=== PATIENT | female | born 1945 | race Caucasian/White ===

== ENCOUNTER 2016-11-08 14:36 | Inpatient (IN) | payer MEDICARE, OTHER ==
[~2016-11-08] VITALS: Ht 172.7 cm; Wt 63.4 kg
--- NOTE | ~2016-11-08 | ECH ---
Transthoracic Echocardiography Report (TTE) Demographics Patient Name JUVE KWONG Date of Study 11/09/2016 Patient Number [id number] Visit Number [id number] Date of 1945 Room Number 408 Accession Number [id number] Gender Female Age 71 year(s) Referring Blanca Sow Greige Goods Examiner Mamie Wetzel Physician RDCS Physician Interpreting Grecia Dunn MD Cloth Designer Physician Supervising Ordering Physician Blanca Sow MD/MLP Nurse Stress Bacon Stringer Conclusions Summary Technically good exam. The estimated left ventricular ejection fraction is 60-65%. Diastolic assessment reveals Grade I diastolic dysfunction. Mild tricuspid regurgitation by color Doppler. There is severe pulmonary hypertension. The pulmonary pressure (RVSP) is 67 mmHg. Procedure Type of Study TTE procedure:Echo Complete SF. Procedure Date Date: 11/09/2016 Start: 11:01 AM Technical Quality: Good visualization Indications:Pulmonary embolus. Appropriate Use Criteria: 9 Height: 68 inches Weight: 135 pounds BSA: 1.73 m Rhythm: NSR HR: 86 bpm BP: 142/81 mmHg M-Mode/2D Measurements LV Diastolic Dimension: 3.85 cm LV Systolic Dimension: 2.38 cm LV Septum Diastolic: 0.91 cm LV PW Diastolic: 0.77 cm AO Root Dimension: 2.79 cm Cardiac Output: 5.3 l/min LA Dimension: 3.63 cm Cardiac Index: 3.06 l/min*m RV Diastolic Dimension: 3.58 cm LA volume index: 18 ml/m LVOT: 2.06 cm LVOT VTI: 18.49 cm RV Base: 3.2 cm LV Stroke volume: 61.59 ml RV Mid: 2.2 cm LV Stroke volume index: 35.6 ml/m TAPSE: 1.9 cm TDI-S': 17 cm/s Doppler Measurements AV Peak Velocity: 1.1 m/s MV Peak E-Wave: 0.73 m/s AV Peak Gradient: 4.84 mmHg MV Peak A-Wave: 0.99 m/s AV Mean Gradient: 2.14 mmHg MV E/A Ratio: 0.73 LVOT Peak Velocity: 0.84 m/s MV P1/2t: 45.7 msec AV Area (Continuity):2.33 cm MV Deceleration Time: 140.9 msec TR Velocity:3.99 m/s MV Area (PHT): 4.82 cm TR Gradient:63.76 mmHg PV Peak Velocity: 0.85 m/s Estimated RAP:3 mmHg PV Peak Gradient: 2.86 mmHg Estimated RVSP: 67 mmHg Estimated PASP: 66.76 mmHg E' Septal Velocity: 0.07 m/s A' Septal Velocity: 0.14 m/s E' Lateral Velocity: 0.11 m/s A' Lateral Velocity: 0.15 m/s RA Area: 14.08 cm Findings Left Ventricle Normal left ventricle size and function. Diastolic assessment reveals Grade I diastolic dysfunction. Right Ventricle Normal right ventricle structure and function. Left Atrium Normal left atrial size. Right Atrium Normal right atrial size. Mitral Valve Normal mitral valve structure and function. Trivial mitral regurgitation by color Doppler. Aortic Valve The aortic valve is mildly sclerotic. Tricuspid Valve Normal tricuspid valve structure and function. Mild tricuspid regurgitation by color Doppler. There is severe pulmonary hypertension. The pulmonary pressure (RVSP) is 67 mmHg. Pulmonic Valve Normal pulmonic valve structure and function. Pericardial Effusion No evidence of pericardial effusion. Miscellaneous Visualized portions of the aortic root and ascending aorta appear normal in size. Pleural Effusion No evidence of pleural effusion. Contractility Score LV regional wall motion:(0-Non visualized 1-Normal 2-Hypokinesis 3-Akinesis 4-Dyskinesis 5-Aneurysm) Signature
[2016-11-14] MEDS ORDERED: PROAIR RESPICL90 MCG IH (10:45)
[2016-11-14] MEDS ORDERED: ZYLOPRIM-DPS100 MG PO (10:46)
[2016-11-14] MEDS ORDERED: ROCALTROL DPS0.5 MCG PO (10:46)
[2016-11-14] MEDS ORDERED: SYMBICORT160 MCG/6 IH (10:46)
[2016-11-14] MEDS ORDERED: ASPIR 8181 MG PO (10:46)
[2016-11-14] MEDS ORDERED: NORVASC DPS10 MG PO (10:46)
[2016-11-14] MEDS ORDERED: LEXAPRO DPS20 MG PO (10:47)
[2016-11-14] MEDS ORDERED: KLONOPIN DPS1 MG PO (10:47)
[2016-11-14] MEDS ORDERED: LOMOTIL 2.5-0.1 EACH PO (10:47)
[2016-11-14] MEDS ORDERED: PHOS-LO667 MG PO (10:47)
[2016-11-14] MEDS ORDERED: DURAGESIC DPS100 MCG TD (10:48)
[2016-11-14] MEDS ORDERED: NEURONTIN DPS100 MG PO (10:48)
[2016-11-14] MEDS ORDERED: HYDROCODON-ACE1 EAC2 PO (10:49)
[2016-11-14] MEDS ORDERED: PREVACID15 MG PO (10:49)
[2016-11-14] MEDS ORDERED: LEVOTHYROXINE75 MCG PO (10:50)
[2016-11-14] MEDS ORDERED: METOPROLOL SUCC50 MG PO (10:52)
[2016-11-14] MEDS ORDERED: LIDOCAINE 5% PATCH TD (10:52)
[2016-11-14] MEDS ORDERED: ANTIVERT-DPS25 MG PO (10:52)
[2016-11-14] MEDS ORDERED: NITROSTAT0.4 MG SL (10:52)
[2016-11-14] MEDS ORDERED: DAILY MULTIPLE1 EAC1 PO (10:52)
[2016-11-14] MEDS ORDERED: SOD BICARB TAB650 MG PO (10:53)
[2016-11-14] MEDS ORDERED: SPIRIVA18 MCG IH (10:54)
[2016-11-14] MEDS ORDERED: ZANAFLEX4 MG PO (10:54)
[2016-11-14] MEDS ORDERED: VITAMIN D250000 UNIT PO (10:54)
[2016-11-14] MEDS ORDERED: IMITREX DPS100 MG PO (10:54)
[2016-11-14] MEDS ORDERED: LASIX DPS40 MG PO (10:58)
--- NOTE | 2016-11-19 21:46 | DS ---
ADMIT: 11/08/2016 RM/LOC: [address] [facility] MR#: [id number] [address] [facility] [id number] [place], [place] [address] JUVE KWONG [address] [place] [address] Discharge Summary SEX: F AGE: 71 : 1945 ADMISSION DATE: 11/08/2016 DISCHARGE DATE: 11/13/2016 DIAGNOSES: 1. Pulmonary embolism right lung. 2. Pulmonary hypertension. 3. Hypoxemia. 4. End-stage renal disease. 5. Left flank pain. 6. Nephrolithiasis. 7. Hypertension. 8. Dyspnea on exertion. 9. Anemia-chronic due to chronic disease and renal failure. PROCEDURE: 1. VQ scan 11/08/2016. 2. Venous Doppler bilateral lower extremity 11/08/2016. 3. Echocardiogram 11/09/2016. 4. Ultrasound of the kidneys 11/09/2016. CONSULTS: None. REASON FOR HOSPITALIZATION: Shortness of breath and hypoxemia. See dictated H and P. LABORATORY AND X-RAY DATA: VQ scan showed intermediate to high probability of pulmonary embolism with a wedge-shaped perfusion defect in the right lower lobe. Bilateral venous Dopplers, lower extremity negative. Ultrasound of the kidneys with renal cysts on the right. Also, renal cyst on the left and no hydronephrosis. X-ray of the abdomen with bilateral nephrolithiasis. Sodium 147, potassium 4.2, chloride 117, CO2 21, BUN 33 down to 21, creatinine 2.4 down to 2, blood sugar variable-see chart. GFR was 24, troponin less than 0.015. INR on admission was 1.25. On 11/12 she was 2.69, on 11/13, 4.27. PTT variable-see chart. White count 7.4, hemoglobin 9.2, platelet count 328, factor V Leiden is pending. Echocardiogram 11/09/2016 with an ejection of 60- 65% and severe pulmonary hypertension with RVSP of 67. COURSE IN THE HOSPITAL: Jessica was admitted after a visit to the office showed her with sats of 87% down to 76% with ambulation. D-dimer was elevated. VQ scan confirmed pulmonary embolism. Due to her renal failure, she was not able to take any of the oral medications or Lovenox. She was admitted for Coumadin. She also needed oxygen with activity, and this was added. Heparin was continued. Coumadin was started. Echocardiogram was done and showed significant pulmonary hypertension probably related to her pulmonary embolism. On the echo, she was noted to have severe pulmonary hypertension, which was contributing to her poor exercise tolerance. Coumadin was adjusted. She did have extreme pain in the left flank that seemed to be more musculoskeletal and consistent with either that or even her underlying nephrolithiasis. She was hydrated, given pain medications, and the symptoms ADMIT: 11/08/2016 RM/LOC: [address] [facility] MR#: [id number] [address] [place] [address] JUVE KWONG [address] [place] [address] Discharge Summary SEX: F AGE: 71 : 1945 did resolve. She continued to increase her activity via a small amount. She was a little more short of breath than she felt she wanted to be just prior to discharge, but we felt it was probably deconditioning as her sats were fine. Her INR was a little slow to increase. She did jump a little excessive just prior to dismissal. We elected to naturally let things come down normally and follow closely as an outpatient. She had been on 7.5 mg, and we had decreased to 6 mg. I will probably send her on 5 mg once we see what her lab is as an outpatient. We will also arrange for her to get home O2 if she qualifies for daytime use. She is improved. Waiting on factor V Leiden as two family members have this. DISCHARGE INSTRUCTIONS: 1. CBC to see about oxygen during the day. 2. She is to come to the office on Sunday for lab including a pro time. O2 as at home. 3. Aspirin 81 mg daily. 4. Klonopin 1 mg at bedtime. 5. Lexapro 20 mg daily. 6. Neurontin 300 mg at bedtime. 7. Norvasc 10 daily. 8. PhosLo 667 b.i.d. with meals. 9. Prevacid 50 mg daily or Prilosec 20 mg daily. 10.Rocaltrol 0.5 daily. 11.Sodium bicarb 650 three pills b.i.d. 12.Synthroid 0.075 mg daily. 13.Vitamin daily. 14.Toprol-XL 50 mg daily. 15.Vitamin D 50,000 every 48 hours. 16.Zyloprim 100 mg daily. 17.Symbicort 160/4.5 one puff b.i.d. 18.Spiriva daily. 19.Duragesic 12 mcg Q 74 hours. 20.Albuterol 2 puffs every 4 hours p.r.n. 21.Lomotil p.r.n. 22.Lido Patch p.r.n. 23.Lasix 40 mg daily p.r.n. 24.Hydrocodone 7.5/325 one every 4-6 hours p.r.n. 25.Meclizine 25 mg 1/2 to 1 q.6h p.r.n. ADMIT: 11/08/2016 RM/LOC: [address] [facility] MR#: [id number] [address] [address] JUVE KWONG [address] [place] [address] Discharge Summary SEX: F AGE: 71 : 1945 26.Nitroglycerin p.r.n. 27.Tizanidine 2 mg q.6h p.r.n. She is improved but will need to be monitored outpatient. We will likely get an echo in about 3 months to see how her pulmonary hypertension is doing. Prognosis is good. Time spent was 40 minutes. Teetee Rios MD/ dewaynef JOB #: [id number] CC: eTetee Rios MD, Attending Physician Teetee Rios MD, Family Physician MD Rea Salas MD [facility] Pulmonology [address] [address]
[2016-12-02] MEDS ORDERED: PROVENTIL HFA6.7 GM IH (21:16)
[2016-12-02] MEDS ORDERED: ASA CHILDREN'S81 MG PO (21:17)
[2016-12-02] MEDS ORDERED: ROCALTROL DPS0.5 MCG PO (21:17)
[2016-12-02] MEDS ORDERED: NORVASC DPS10 MG PO (21:17)
[2016-12-02] MEDS ORDERED: SYMBICORT160 MCG/6 IH (21:17)
[2016-12-02] MEDS ORDERED: ZYLOPRIM-DPS100 MG PO (21:17)
[2016-12-02] MEDS ORDERED: KLONOPIN DPS1 MG PO (21:18)
[2016-12-02] MEDS ORDERED: PHOS-LO667 MG PO (21:18)
[2016-12-02] MEDS ORDERED: LEXAPRO DPS20 MG PO (21:18)
[2016-12-02] MEDS ORDERED: LASIX DPS40 MG PO (21:19)
[2016-12-02] MEDS ORDERED: DURAGESIC1 EAC1 TD (21:19)
[2016-12-02] MEDS ORDERED: NEURONTIN DPS300 MG PO (21:19)
[2016-12-02] MEDS ORDERED: NORCO 7.5-3251 EACH PO (21:20)
[2016-12-02] MEDS ORDERED: PREVACID15 MG PO (21:20)
[2016-12-02] MEDS ORDERED: SYNTHROID DP0.075 MG PO (21:20)
[2016-12-02] MEDS ORDERED: LIDOPATCH1 EACH TD (21:22)
[2016-12-02] MEDS ORDERED: ANTIVERT-DPS25 MG PO (21:23)
[2016-12-02] MEDS ORDERED: THERA1 EACH PO (21:23)
[2016-12-02] MEDS ORDERED: NITROSTAT0.4 MG SL (21:23)
[2016-12-02] MEDS ORDERED: TOPROL XL50 MG PO (21:23)
[2016-12-02] MEDS ORDERED: SOD BICARB TAB650 MG PO (21:24)
[2016-12-02] MEDS ORDERED: IMITREX DPS100 MG PO (21:24)
[2016-12-02] MEDS ORDERED: TIZANIDINE HCL2 M1 PO (21:25)
[2016-12-02] MEDS ORDERED: SPIRIVA18 MCG IH (21:25)
[2016-12-02] MEDS ORDERED: VITAMIN D50000 UNIT PO (21:25)
[2016-12-02] MEDS ORDERED: COUMADIN1 MG PO (21:26)
[2016-12-02] MEDS ORDERED: MAG-OX400 MG PO (21:26)
== END 2016-11-13 15:23 | disposition home or self-care (01) | DRG 175 ==
LOC: RAD.S 14:36 → 4PCU 16:13
PROVIDERS: ADMIT Internal Medicine
DX: I26.99 Other pulmonary embolism without acute cor pulmonale (principal); N18.6 End stage renal disease; I12.0 Hypertensive chronic kidney disease with stage 5 chronic kidney disease or end stage renal disease; I27.2 Other secondary pulmonary hypertension; D80.3 Selective deficiency of immunoglobulin G [IgG] subclasses; N25.81 Secondary hyperparathyroidism of renal origin; E03.9 Hypothyroidism, unspecified; D63.1 Anemia in chronic kidney disease; N28.1 Cyst of kidney, acquired; I25.10 Atherosclerotic heart disease of native coronary artery without angina pectoris; M47.812 Spondylosis without myelopathy or radiculopathy, cervical region; R91.1 Solitary pulmonary nodule; G25.81 Restless legs syndrome; R09.02 Hypoxemia; K91.1 Postgastric surgery syndromes; K21.9 Gastro-esophageal reflux disease without esophagitis; N20.0 Calculus of kidney; F32.9 Major depressive disorder, single episode, unspecified; E55.9 Vitamin D deficiency, unspecified; M11.20 Other chondrocalcinosis, unspecified site; M81.0 Age-related osteoporosis without current pathological fracture; J43.9 Emphysema, unspecified; Z98.84 Bariatric surgery status; Z87.891 Personal history of nicotine dependence; Z82.49 Family history of ischemic heart disease and other diseases of the circulatory system

== ENCOUNTER 2016-11-27 12:31 | Inpatient (IN) | payer MEDICARE, OTHER ==
[~2016-11-27] VITALS: Ht 172.7 cm; Wt 64.6 kg
--- NOTE | ~2016-11-27 | ECH ---
Transthoracic Echocardiography Report (TTE) Demographics Patient Name JUVE KWONG Date of Study 11/28/2016 Patient Number [id number] Visit Number [id number] Date of 1945 Room Number 418 Accession Number [id number] Gender Female Age 71 year(s) Referring Blanca Sow Director Of Research And Development Mamie Wetzel Physician JOHNNY Physician Gladis Huff MD Manager Sas Physician Jhonatan Supervising Ordering Physician Blanca Sow MD/MLP Nurse Stress Wool Hat Forming Machine Tender Conclusions Contractility Score Summary Normal Left Ventricular contractility was noted. Summary Limited study for ejection fraction. Doppler not performed. Technically good exam. The estimated left ventricular ejection fraction is hyperdynamic at >75%. Recommendation The patient will be given the results of this study by the physician who ordered the exam. Procedure Type of Study TTE procedure:Echo Limited SF. Procedure Date Date: 11/28/2016 Start: 02:36 PM Technical Quality: Good visualization Indications:Hypotension and Hypertension. Appropriate Use Criteria: 9 Height: 68 inches Weight: 136 pounds BSA: 1.73 m Rhythm: Irregular HR: 107 bpm BP: 122/60 mmHg M-Mode/2D Measurements LV Diastolic Dimension: 4.23 cm LV Systolic Dimension: 2.59 cm LV Septum Diastolic: 0.96 cm LV PW Diastolic: 0.89 cm AO Root Dimension: 3.12 cm LA Dimension: 3.52 cm RV Diastolic Dimension: 3.91 cm LA volume: 50.72 ml LA volume index: 29 ml/m RV Base: 3 cm RV Mid: 1.9 cm TAPSE: 1.9 cm Doppler Measurements RA Area: 14.41 cm Findings Left Ventricle Normal left ventricle size and function. Right Ventricle Normal right ventricle structure and function. Left Atrium Normal left atrial size. Right Atrium Normal right atrial size. Mitral Valve Normal mitral valve structure and function. Aortic Valve Normal aortic valve structure and function. Tricuspid Valve Normal tricuspid valve structure and function. Pulmonic Valve Normal pulmonic valve structure and function. Pericardial Effusion No evidence of pericardial effusion. Miscellaneous Visualized portions of the aortic root and ascending aorta appear normal in size. Pleural Effusion No evidence of pleural effusion. Contractility Score LV regional wall motion:(0-Non visualized 1-Normal 2-Hypokinesis 3-Akinesis 4-Dyskinesis 5-Aneurysm) Signature
[~2016-11-27 12:31] MED LIST: ANTIVERT-DPS25 MG PO; ASPIR 8181 MG PO; DAILY MULTIPLE1 EAC1 PO; DURAGESIC DPS100 MCG TD; HYDROCODON-ACE1 EAC2 PO; IMITREX DPS100 MG PO; KLONOPIN DPS1 MG PO; LASIX DPS40 MG PO; LEVOTHYROXINE75 MCG PO; LEXAPRO DPS20 MG PO; LIDOCAINE 5% PATCH TD; LOMOTIL 2.5-0.1 EACH PO; METOPROLOL SUCC50 MG PO; NEURONTIN DPS100 MG PO; NITROSTAT0.4 MG SL; NORVASC DPS10 MG PO; PHOS-LO667 MG PO; PREVACID15 MG PO; PROAIR RESPICL90 MCG IH; ROCALTROL DPS0.5 MCG PO; SOD BICARB TAB650 MG PO; SPIRIVA18 MCG IH; SYMBICORT160 MCG/6 IH; VITAMIN D250000 UNIT PO; ZANAFLEX4 MG PO; ZYLOPRIM-DPS100 MG PO
[2016-12-02] MEDS ORDERED: PROVENTIL HFA6.7 GM IH (21:16)
[2016-12-02] MEDS ORDERED: ASA CHILDREN'S81 MG PO (21:17)
[2016-12-02] MEDS ORDERED: SYMBICORT160 MCG/6 IH (21:17)
[2016-12-02] MEDS ORDERED: ZYLOPRIM-DPS100 MG PO (21:17)
[2016-12-02] MEDS ORDERED: ROCALTROL DPS0.5 MCG PO (21:17)
[2016-12-02] MEDS ORDERED: NORVASC DPS10 MG PO (21:17)
[2016-12-02] MEDS ORDERED: LEXAPRO DPS20 MG PO (21:18)
[2016-12-02] MEDS ORDERED: KLONOPIN DPS1 MG PO (21:18)
[2016-12-02] MEDS ORDERED: PHOS-LO667 MG PO (21:18)
[2016-12-02] MEDS ORDERED: DURAGESIC1 EAC1 TD (21:19)
[2016-12-02] MEDS ORDERED: LASIX DPS40 MG PO (21:19)
[2016-12-02] MEDS ORDERED: NEURONTIN DPS300 MG PO (21:19)
[2016-12-02] MEDS ORDERED: PREVACID15 MG PO (21:20)
[2016-12-02] MEDS ORDERED: NORCO 7.5-3251 EACH PO (21:20)
[2016-12-02] MEDS ORDERED: SYNTHROID DP0.075 MG PO (21:20)
[2016-12-02] MEDS ORDERED: LIDOPATCH1 EACH TD (21:22)
[2016-12-02] MEDS ORDERED: THERA1 EACH PO (21:23)
[2016-12-02] MEDS ORDERED: TOPROL XL50 MG PO (21:23)
[2016-12-02] MEDS ORDERED: NITROSTAT0.4 MG SL (21:23)
[2016-12-02] MEDS ORDERED: ANTIVERT-DPS25 MG PO (21:23)
[2016-12-02] MEDS ORDERED: IMITREX DPS100 MG PO (21:24)
[2016-12-02] MEDS ORDERED: SOD BICARB TAB650 MG PO (21:24)
[2016-12-02] MEDS ORDERED: TIZANIDINE HCL2 M1 PO (21:25)
[2016-12-02] MEDS ORDERED: SPIRIVA18 MCG IH (21:25)
[2016-12-02] MEDS ORDERED: VITAMIN D50000 UNIT PO (21:25)
[2016-12-02] MEDS ORDERED: COUMADIN1 MG PO (21:26)
[2016-12-02] MEDS ORDERED: MAG-OX400 MG PO (21:26)
--- NOTE | 2016-12-05 06:50 | DS ---
ADMIT: 11/27/2016 RM/LOC: [address] [facility] MR#: [id number] [address] [place], [place] [address] JUVE KWONG [address] [place] [address] Discharge Summary SEX: F AGE: 71 : 1945 ADMISSION DATE: 11/27/2016 DISCHARGE DATE: 12/01/2016 FINAL DIAGNOSES: 1. Weakness. 2. Shortness of breath. 3. Symptomatic hypotension. 4. Anemia, status post blood transfusion. 5. Chronic kidney disease. 6. Chronic obstructive pulmonary disease. REASON FOR ADMISSION: See dictated H and P. Briefly, this is a 71-year-old female, who presented with malaise, weakness, and shortness of breath. She had recently been hospitalized for a PE. When she came in, oxygen saturations were 87-91%. She reports she was supposed to be on some oxygen but does not always wear it. She did have some coffee-ground appearing stools and some hematuria and hemoptysis at home. Hemoglobin was 8. HOSPITAL COURSE: The patient was admitted and ultimately needed a blood transfusion with one hemoglobin in the 7's and continual blood loss. It came back up to 9, which is kind of her usual number. She was feeling much better. In fact, her blood pressure became a little hypertensive. INR on day of discharge was 1.7, white count of 17.1, hemoglobin 9.3, platelet of 358, creatinine of 2.6, and BUN of 46. She was set up to be discharged to home with close followup with her Coumadin on the next Sunday. She will be on a steroid burst and continue out her antibiotics as well. See discharge medications for that list. Valeriy Ball MD/ silvano JOB #: [id number] CC: Teetee Rios MD, Attending Physician Teetee Rios MD, Family Physician
--- NOTE | 2017-01-08 08:51 | HP ---
ADMIT: 11/27/2016 RM/LOC: 418 [facility] MR#: [id number] [address] [facility] [address] [place], [place] [address] JUVE KWONG [address] [place] [address] History and Physical SEX: F AGE: 71 : 1945 DATE OF SERVICE: HISTORY OF PRESENT ILLNESS: Ms. Kwong is a very pleasant, 71-year-old female, patient of Dr. Rios who presents to the clinic today with complaint of overall malaise and weakness. She was recently started on Coumadin for a PE and was hospitalized for this. Since being home, she has continued to have shortness of breath, as well as issues with elevated INRs. Sunday and Sunday of last week, she had black coffee-ground appearing stools as well as gross hematuria and hemoptysis. This resolved on Sunday. She denies any bleeding or black stools today, although she continues to feel quite lethargic and short of breath. She has a longstanding history of COPD and wears 24/7 oxygen. She states that she is hardly getting out of bed due to fatigue and shortness of breath. Her blood pressure in clinic today is lower than usual for her, she generally runs in the 90s, but today she is in the low 80s over 50s. Her oxygen saturations are anywhere from 87-91%, which is usual for her. CBC done in clinic today reveals a hemoglobin of 8.2. Her normal hemoglobin range runs in the mid to upper 9. MEDICAL HISTORY: 1. Newly diagnosed pulmonary emboli. 2. Chronic anticoagulation on Coumadin. 3. History of GERD. 4. Depression. 5. Nicotine abuse. 6. Vitamin D deficiency. 7. Spinal stenosis. 8. Osteoporosis. 9. Kyphosis. 10.Emphysema. 11.Long-term oxygen use. 12.Hypothyroidism. 13.Anemia. 14.Chronic kidney disease stage IV. 15.History of gastric bypass. 16.Gastroparesis. 17.Hypertension. 18.History of migraines. 19.Coronary artery disease. 20.Pulmonary hypertension. PAST SURGICAL HISTORY: Noncontributory. FAMILY HISTORY: Noncontributory. SOCIAL HISTORY: She is a current smoker who lives at home alone, but does have family around. MEDICATIONS: 1. Albuterol inhaler. ADMIT: 11/27/2016 RM/LOC: [address] [facility] MR#: [id number] [address] [address] JUVE KWONG [address] [place] [address] History and Physical SEX: F AGE: 71 : 1945 2. Allopurinol 100 mg daily. 3. Norvasc 10 mg. 4. Aspirin 81 mg. 5. Symbicort 1 puff b.i.d. 6. Calcitriol 0.5 mcg. 7. PhosLo 667 mg. 8. Klonopin 1 mg. 9. Lomotil as needed. 10.Lexapro 20 mg daily. 11.Fentanyl patch 12 mcg every 3 days. 12.Lasix 40 mg daily. 13.Gabapentin 100 mg 1 at bedtime but may take up to 3 capsules per day. 14.Hydrocodone 7.5/325 as needed. 15.Prevacid 15 mg daily. 16.Synthroid 75 mcg daily. 17.Lidoderm patch as needed. 18.Antivert 25 mg tablet as needed. 19.Mag ox 400 mg daily. 20.Toprol 50 mg daily. 21.Nitroglycerin as needed. 22.Prilosec 20 mg daily. 23.Sodium bicarbonate 650 mg. 24.Imitrex 100 mg as needed. 25.Spiriva 18 mcg inhaled daily. 26.Zanaflex 2 mg p.r.n. 27.Vitamin D 05238 units every other day. 28.Coumadin, which is currently on hold. ALLERGIES: MORPHINE, AUGMENTIN, CELEXA, CYMBALTA, ERYTHROMYCIN, IMDUR, LEVAQUIN, MOTRIN, SALSALATE, AND TOPAMAX. REVIEW OF SYSTEMS: A complete review of system was complete and otherwise negative other than what was stated in the HPI. PHYSICAL EXAMINATION: GENERAL: Elderly white female, appears older than stated age, pale and appears dyspneic. VITAL SIGNS: Blood pressure 84/52, heart rate 68, respirations 20, SpO2 of 92% on oxygen, weight 135 pounds, height 5 feet 6 inches. SKIN: Generally, pale but dry. HEENT: Eyes, PERRL. Ears, tympanic membranes intact. No discharge or infection present. HEART: Regular rate and rhythm with a slight systolic murmur. LUNGS: Diminished throughout, slightly tachypneic, wearing oxygen. Dry hacky cough noticed at times. ABDOMEN: Soft, nonrigid, bowel sounds are active x4. MUSCULOSKELETAL: Ambulating around clinic without complaint. No edema peripherally. NEURO: She is alert and appropriate. No focal deficit noted. ADMIT: 11/27/2016 RM/LOC: [address] [place] [address] MR#: [id number] [address] [place] [address] [facility] [address] [place] [address] History and Physical SEX: F AGE: 71 : 1945 ASSESSMENT AND PLAN: Given her symptomatic hypotension as well as anemia, we will admit to [facility] for further evaluation. We will transfuse with 1 unit of blood, hopefully this will be enough to increase her stamina. Her INR is finally down to a therapeutic range of 2.2 today. We will carefully restart her Coumadin and need to continue very close monitoring of her INRs. She has chronic kidney disease, therefore was not a candidate for Xarelto. Her shortness of breath has been long-term, it is more than likely due to her anemia and hypotension, but may need further pulmonary workup. She fortunately has good help that lives in town, but lives at home alone and takes care of dogs. She also may benefit from physical therapy while in the hospital. This plan was discussed with Dr. Teetee Rios who will take over her care while she is inpatient. All further orders per Dr. Rios. Dayami Gonzalez APRN / Teetee Rios MD / seven JOB #: [id number] CC: Teetee Rios, Attending Physician Teetee Rios, Family Physician
== END 2016-12-01 14:45 | disposition home or self-care (01) | DRG 378 ==
LOC: 4PCU 12:31
PROVIDERS: ADMIT Internal Medicine
PROC: 30233N1 Transfusion of Nonautologous Red Blood Cells into Peripheral Vein, Percutaneous Approach (ICD-10-PCS; principal; 2016-11-27)
DX: K92.1 Melena (principal); N18.4 Chronic kidney disease, stage 4 (severe); I95.9 Hypotension, unspecified; J96.10 Chronic respiratory failure, unspecified whether with hypoxia or hypercapnia; I27.2 Other secondary pulmonary hypertension; J44.1 Chronic obstructive pulmonary disease with (acute) exacerbation; D64.9 Anemia, unspecified; Z99.81 Dependence on supplemental oxygen; K21.9 Gastro-esophageal reflux disease without esophagitis; F32.9 Major depressive disorder, single episode, unspecified; F17.200 Nicotine dependence, unspecified, uncomplicated; E03.9 Hypothyroidism, unspecified; I12.9 Hypertensive chronic kidney disease with stage 1 through stage 4 chronic kidney disease, or unspecified chronic kidney disease; I25.10 Atherosclerotic heart disease of native coronary artery without angina pectoris; E55.9 Vitamin D deficiency, unspecified; M48.00 Spinal stenosis, site unspecified; K31.84 Gastroparesis; M81.0 Age-related osteoporosis without current pathological fracture; M40.209 Unspecified kyphosis, site unspecified; Z79.01 Long term (current) use of anticoagulants; Z86.711 Personal history of pulmonary embolism; Z98.84 Bariatric surgery status

== ENCOUNTER → 2016-12-19 | Outpatient (CLI) | payer MEDICARE, OTHER ==
[~2016-12-19] MED LIST changes: +ASA CHILDREN'S81 MG PO; +COUMADIN1 MG PO; +DURAGESIC1 EAC1 TD; +LIDOPATCH1 EACH TD; +MAG-OX400 MG PO; +NEURONTIN DPS300 MG PO; +NORCO 7.5-3251 EACH PO; +PROVENTIL HFA6.7 GM IH; +SYNTHROID DP0.075 MG PO; +THERA1 EACH PO; +TIZANIDINE HCL2 M1 PO; +TOPROL XL50 MG PO; +VITAMIN D50000 UNIT PO
== END | disposition home or self-care (01) ==
LOC: RAD.S 15:12
DX: M79.604 Pain in right leg (principal); Z86.711 Personal history of pulmonary embolism

== ENCOUNTER → 2017-01-16 | Outpatient (CLI) | payer MEDICARE, OTHER | END | disposition home or self-care (01) | LOC: PTH.S 16:07 | DX: R07.89 Other chest pain (principal); D64.9 Anemia, unspecified ==